=== PATIENT | female | born 1985 | race Caucasian/White ===

== ENCOUNTER 2023-03-11 14:59 | Outpatient (OUT) | payer MEDICAID, SELFPAY ==
--- NOTE | 2023-03-11 | XR_ITS ---
The [address] [address] Patient Name: JAYESH AGUILAR MRN: [id number] date: 1985 Sex: F Assigned Patient Location: [facility] Current Patient Location: Accession/Order Number: [id number] Exam Date: 03/11/2023 15:23 Report Date: 03/12/2023 06:42 At the request of: SHREYAS ZAMBRANO Procedure: XR foot RT min 3V PROCEDURE: XR foot RT min 3V HISTORY: RIGHT FOOT PAIN ; lateral right foot lump COMPARISON: None. FINDINGS: BONES:No fracture, acute abnormality, or significant arthropathy. SOFT TISSUES:Focal area of increased density within the soft tissues lateral to the base of the fifth metatarsal proximally 2.5 cm in diameter; no definable margins or radiopaque foreign body. EFFUSION:None visible. OTHER: Negative. IMPRESSION: 1. Nonspecific soft tissue mass/area of increased density lateral to base of fifth metatarsal. Consider ultrasound or MRI for further evaluation. 2. No appreciable bone involvement. Electronically authenticated by: YOSHI NICOLAS Date: 03/12/2023 06:42
== END 2023-03-11 15:00 | disposition home or self-care (01) ==
LOC: RAD 15:00
PROVIDERS: Visit Provider Podiatrist Foot & Ankle Surgery
DX: M79.671 Pain in right foot (principal); M79.89 Other specified soft tissue disorders
CPT/HCPCS: 73630

== ENCOUNTER 2023-03-23 08:53 | Outpatient (OUT) | payer MEDICAID, SELFPAY ==
--- NOTE | 2023-03-23 09:04 | ECG_ITS ---
The [facility] Test Date: 2023-03-23 Pat Name: JAYESH AGUILAR Department: Room: - Gender: Female [employer]: : 1985 Requested By: SHREYAS ZAMBRANO Order Number: [id number] Reading MD: SURENDRA MOSS Measurements Intervals [place] Rate: 65 P: 65 ID: 161 QRS: 66 QRSD: 90 T: 55 QT: 409 QTc: 428 Interpretive Statements SINUS RHYTHM No previous ECG available for comparison Electronically Signed On 03-24-2023 7:00:31 EDT by SURENDRA MOSS
--- NOTE | 2023-03-23 09:33 | PM.PRESUREVA ---
History of Present Illness History of Present Illness Chief complaint: ganglion right ankle and foot Narrative: Patient presents for preadmission testing. Please see HPI from Dr. Gordon dated 03/11/2023. Review of Systems ROS Narrative Please see ROS from Dr. Gordon dated 03/11/2023. [facility] Medical History (Updated 03/23/23 @ 09:16 by Emeli Parish NP) Surgical History (Updated 03/23/23 @ 09:16 by Emeli Parish NP) Family History (Updated 03/23/23 @ 09:16 by Emeli Parish NP) Other Family history of COPD (chronic obstructive pulmonary disease) Family history of DVT Family history of breast cancer Family history of diabetes mellitus Family history of seizures Family history of uterine cancer Social History (Updated 03/23/23 @ 09:11 by Emeli Parish NP) Within the past year, how often did you have a drink containing alcohol: monthly or less Smoking status: Never smoker Non-prescribed substance use: denies use Previous occupational history: Works from home Highest level of school completed/degree received: Associate degree: academic program Meds Home Medications and Allergies Home Medications Medication Instructions Recorded Confirmed Type biotin 5 mg capsule 5 mg PO DAILY 03/23/23 03/23/23 History escitalopram oxalate 10 mg tablet 10 mg PO DAILY 03/23/23 03/23/23 History hydroxyzine HCl 25 mg tablet 25 mg PO TID PRN anxiety 03/23/23 03/23/23 History lisdexamfetamine 20 mg capsule 20 mg PO QAM 03/23/23 03/23/23 History (Vyvanse) Allergies Allergy/AdvReac Type Severity Reaction Status Date / Time codeine Allergy Hallucinati Verified 03/23/23 09:08 ng Exam Narrative Exam Narrative: Constitutional: Awake, alert, comfortable, well-appearing, nontoxic, interactive, vital signs as charted Head: Normocephalic, atraumatic Neck: Supple, normal appearance, normal range of motion, no meningeal signs, no lymphadenopathy Respiratory: No respiratory distress, breath sounds clear Cardiovascular: Regular rate and rhythm, strong and regular heart tones Psychiatric: Oriented ?3, normal affect Assessment and Plan Assessment and Plan (1) Ganglion cyst of right foot: Plan Removal of ganglion cyst right foot scheduled with Dr. Gordon 03/30/2023.
[2023-03-23 11:08] LABS: Anion Gap 10.2; BUN Creatinine Ratio 13.8; Calcium 8.9 mg/dL (8.5-10.1); Carbon Dioxide 28.9 mmol/L (21.0-32.0); Chloride 106 mmol/L (98-107); Estimated GFR (African America >60 (>=60); Estimated GFR (Non-African Ame >60 (>=60); Glucose 95 mg/dL (74-106); Potassium 4.1 mmol/L (3.5-5.1); Sodium 141 mmol/L (136-145)
== END 2023-03-23 08:54 | disposition home or self-care (01) ==
LOC: PST 08:56
PROVIDERS: Visit Provider Podiatrist Foot & Ankle Surgery
DX: Z01.812 Encounter for preprocedural laboratory examination (principal); Z01.818 Encounter for other preprocedural examination; Z01.810 Encounter for preprocedural cardiovascular examination; M67.471 Ganglion, right ankle and foot; I10 Essential (primary) hypertension
CPT/HCPCS: 36415; 80048; 93005; G0463

== ENCOUNTER 2023-03-30 07:42 | Day surgery (SDC) | payer MEDICAID, SELFPAY ==
[2023-03-23 09:12] VITALS: BP 126/88; PULSE 65; RESP 18; TEMP 36.4; O2SAT 97; BMI 34.0
[2023-03-30] VITALS (10 sets, daily range): BP systolic 99–123; BP diastolic 63–87; PULSE 71–88; RESP 14–16; TEMP 36.2–36.5; O2SAT 92–97; BMI 33.6
[2023-03-30] MEDS: LACTATED RINGER'S SOLUTION 1,000 ML 50 ML IV (08:12)
[2023-03-30 08:18] LABS: Glucometer 89 mg/dL (74-106)
[2023-03-30 08:19] LABS: HCG Qualitative NEGATIVE (NEGATIVE)
[2023-03-30] MEDS: CEFAZOLIN SODIUM/DEXTROSE,ISO 2 GM/50 ML PIGGYBACK IV (08:52)
[2023-03-30] MEDS: BUPIVACAINE HCL 0.5% PF 50 MG/10 ML VIAL INJ (09:39)
--- NOTE | 2023-03-30 09:49 | PM.ORONB ---
Brief Operative Note Date of procedure: 03/30/23 Pre-op diagnosis: right ganglion cyst Post-op diagnosis: same Procedure: procedures performed: Excision of ganglion cyst, right foot Intraoperative findings: Highly viscous fluid filled soft tissue mass with a stalk which communicated to the 4th-5th metatarsal-cuboid joint. Procedure in detail: Patient was identified in pre op and consent was reviewed. Correct side and site were identified and marked. Pre-op antibiotics were started. Patient was brought to OR suite and place on table in a supine position. General anesthesia was administered. Tourniquet applied. Operative extremity was prepped and draped in usual sterile fashion. Formal time-out was performed and the foot/ankle were exsanguinated and tourniquet inflated. Linear incision was placed between the 4th and 5th extensor tendons and a combination of sharp and blunt dissection subcutaneously exposed a 3.5 x 3.5 cm fluid-filled mass. Meticulous dissection was taken to expose a stalk which communicated to the nearby 4th/5th metatarsal-cuboid joint. Upon excision of the cyst which drained a clear highly viscous fluid the stalk was isolated and cauterized while being excised soft tissue mass was passed back table to be sent as specimen. All neurovascular and tendinous structures were protected throughout the procedure. The tourniquet was deflated with a prompt hyperemic response. Surgical site was irrigated with copious saline and the incision was closed in layers. A dry sterile dressing and surgical shoe were then applied. patient tolerated the procedure and anesthesia well and was transferred to recovery room with brisk capillary refill and stable vital signs Postoperative plan: Discharge home under family's care Post op instructions provided verbally and written prescription(s) were placed in chart weightbearing as tolerated in surgical shoe until follow-up. Removed surgical bandage within the next three days. The incision is to wash his water and sterile gauze dressing with Vicente wrap distally applied. Follow-up in 2-3 weeks Implants: none Anesthesia: YARIEL Surgeon: Ramu Gordon Canal Equipment Mechanic: Josué Lincoln Estimated blood loss (mL): 10 Pathology: other (soft tissue mass/ganglion) Condition: stable Disposition: PACU Preoperative Details Reason for procedure: patient is a 38-year-old female who presented to my office relating to a lump on her dorsal lateral right foot. This soft tissue mass has been present for nearly 5 years and has of recent increase in size and pain. Patient related in the office that she has difficulty finding comfortable shoes. On examination the soft tissue mass is freely mobile fluid-filled and did transilluminate in the preoperative area. Overlying skin is within normal limits and findings are consistent with a ganglion. She is related that the mass does change in size depending on activity and she does not have any history of numbness and tingling in the area. We discussed potential risks and benefits associated with percutaneous drainage and steroid injections which may provide her with temporary relief but does have risk of failure to provide long-term relief. I related that surgical/invasive options such as excision has roughly a fifty percent chance of recurrence. Given the amount of pain and difficulty with activities of daily living she wished to proceed with surgical excision. I discussed potential risks of wound, dehiscence, infection, recurrence, numbness and tingling, bleeding. Patient was consented today to undergo surgical excision
[2023-03-30 10:44] LABS: Glucometer 91 mg/dL (74-106)
== END 2023-03-30 11:30 | disposition home or self-care (01) ==
PROVIDERS: Visit Provider Podiatrist Foot & Ankle Surgery
PROC: (CPT 1470; principal; 2023-03-30 08:40)
DX: M67.471 Ganglion, right ankle and foot (principal); F41.9 Anxiety disorder, unspecified; Z79.899 Other long term (current) drug therapy; F50.81 Binge eating disorder; Z68.32 Body mass index [BMI] 32.0-32.9, adult
CPT/HCPCS: 28090; 36415; 82948; 84703; 88304; J2704